=== PATIENT | male | born 1985 | race African-American/Black ===

== ENCOUNTER 2020-03-13 02:02 | Emergency (ER) | payer OTHER ==
[~2020-03-13] VITALS: Ht 190.5 cm; Wt 105.0 kg
[2020-03-13 02:11] VITALS: BP 144/73
== END 2020-03-13 02:56 | disposition home or self-care (01) ==
LOC: ER 02:20
DX: S16.1XXA Strain of muscle, fascia and tendon at neck level, initial encounter (principal); V49.88XA Car occupant (driver) (passenger) injured in other specified transport accidents, initial encounter; Y93.89 Activity, other specified; Y92.89 Other specified places as the place of occurrence of the external cause; Y99.8 Other external cause status
CPT/HCPCS: 99282